=== PATIENT | male | born 1980 | race Caucasian/White ===

== ENCOUNTER 2024-09-23 06:41 | Day surgery (SDC) | payer MEDICARE ==
[2024-09-09] MEDS: LIDOCAINE 1% SDV 5ML VIAL As Ordered ONE (06:51)
[2024-09-09] MEDS: CEFUROXIME 1MG/0.1ML INTRACAMERAL INJ As Ordered ONE (06:51)
[2024-09-09] MEDS: BSS IRRIG/VANCO(10MG)/TOBRA(5MG)/EPINEPH(1:1000-0.5CC)500ML BAG-ORONLY As Ordered ONE (08:15)
[~2024-09-23] VITALS: Ht 188 cm; Wt 70.9 kg
[~2024-09-23 06:41] MED LIST: ALBU8.5H; CYCLOPENTOLATE 1% OPHTH SOLN 2ML BTL OS SCH; DIPH1TAB80 PO; FIAS100I2; HYDR-4514; INSU100I14 SQ; PHENYLEPHRINE 10% OPHTH SOL 5ML OS PRN; PHENYLEPHRINE 2.5% OPHTH SOL 2ML OS SCH; PREG200C2 PO; ROSU5TAB49 PO; TROPICAMIDE 1% OPHTH SOLN 15ML OS SCH
[2024-09-23] MEDS: OFLOXACIN 0.3 % (OCUFLOX) OPTH SOL 5ML OS ONE ×2 (07:19→07:20)
[2024-09-23] MEDS: PHENYLEPHRINE 2.5% OPHTH SOL 2ML OS SCH (07:20)
[2024-09-23] MEDS: LIDOCAINE 3.5 % 1ML OPHTH TOPICAL GEL OU ONE ×2 (07:20→07:24)
[2024-09-23] MEDS: INSULIN LISPRO (NovoLOG) PER UNIT SC PRN (07:20)
[2024-09-23] MEDS: TROPICAMIDE 1% OPHTH SOLN 15ML OS SCH (07:24)
[2024-09-23] MEDS: CYCLOPENTOLATE 1% OPHTH SOLN 2ML BTL OS SCH (07:24)
[2024-09-23] MEDS ORDERED: MIDAZOLAM INJ 2MG/2ML VIAL As Ordered ONE (07:52)
[2024-09-23] MEDS ORDERED: fentaNYL 100 MCG/2 ML INJECTION As Ordered ONE (07:53)
[2024-09-23 08:20] VITALS: BP 109/70; TEMP 97.2; O2SAT 97
== END 2024-09-23 08:50 | disposition home or self-care (01) ==
LOC: M SDC 06:41
PROVIDERS: ATTEND Ophthalmology
DX: H25.12 Age-related nuclear cataract, left eye (principal); E10.36 Type 1 diabetes mellitus with diabetic cataract; E10.40 Type 1 diabetes mellitus with diabetic neuropathy, unspecified; J44.9 Chronic obstructive pulmonary disease, unspecified; F17.210 Nicotine dependence, cigarettes, uncomplicated; Z79.899 Other long term (current) drug therapy; Z79.4 Long term (current) use of insulin; Z88.6 Allergy status to analgesic agent
CPT/HCPCS: 66984; J0697; J1815; J2250; J3010; V2632